=== PATIENT | female | born 2000 | race Caucasian/White ===

== ENCOUNTER 2022-03-24 14:23 | Emergency (ER) | payer OTHER ==
[2022-03-24 16:08] LABS: HEMOGLOBIN 12.7 gm/dl (12.3-15.3); RED BLOOD COUNT 4.13 M/UL (4.00-5.10); WHITE BLOOD COUNT 10.6 K/UL (4.5-11.0)
[2022-03-24 16:27] LABS: BUN/CREATININE RATIO 14 (0-10)
[2022-03-24] MEDS ORDERED: PHENERGAN 25 MG25 M1 PO (18:30)
[2022-03-24] MEDS ORDERED: PROTONIX40 MG PO (18:30)
== END 2022-03-24 18:42 | disposition home or self-care (01) ==
LOC: ER1 14:23
DX: O21.0 Mild hyperemesis gravidarum (principal); O99.281 Endocrine, nutritional and metabolic diseases complicating pregnancy, first trimester; E86.0 Dehydration; Z3A.01 Less than 8 weeks gestation of pregnancy
CPT/HCPCS: 80053; 81001; 84702; 85025; 96374; 96375; 99284; J1200; J2765